=== PATIENT | male | born 1970 | race Caucasian/White ===

== ENCOUNTER 2019-03-11 09:11 | Emergency (ER) | payer BC ==
--- NOTE | 2019-03-11 09:36 | EDM.PDOC ---
ED HPI GENERAL MEDICAL PROBLEM - General Stated Complaint: FELL OFF LADDER INJURING ANKLE Time Seen by Provider: 03/11/19 09:11 Source of Information: Reports: Patient History Limitations: Reports: No Limitations - History of Present Illness INITIAL COMMENTS - FREE TEXT/NARRATIVE: 48 y.o.w.m came one day after he fell 4 feet from a ladder, to the ED due to pain and swelling of his right ankle and right calcaneus pain, No back pain. No N/V/D no dizziness no SOB no CP or any other acute med issues. BP 134/90 RR 18 Pulse ox 98% on RA Pulse 94 Temp 36.6 Onset Date: 03/10/19 Onset Time: 15:00 Duration: Day(s): Location: Reports: Lower Extremity, Right (foot) Quality: Reports: Dull, Pressure Severity: Moderate Improves with: Reports: Rest Worsens with: Reports: Movement Context: Reports: Trauma Associated Symptoms: Reports: No Other Symptoms Right Ankle Pain Score (Numeric/FACES): 8 - Related Data Allergies Allergy/AdvReac Type Severity Reaction Status Date / Time No Known Allergies Allergy Verified 03/11/19 10:13 Home Meds: Home Meds NK [No Known Home Meds] 03/11/19 [History] Review of Systems - Review of Systems Review Of Systems: See Below Constitutional: Reports: No Symptoms Eyes: Reports: No Symptoms Ears: Reports: No Symptoms Nose: Reports: No Symptoms Mouth/Throat: Reports: No Symptoms Respiratory: Reports: No Symptoms Cardiovascular: Reports: No Symptoms GI/Abdominal: Reports: No Symptoms Genitourinary: Reports: No Symptoms Musculoskeletal: Reports: Foot Pain (right foot) Skin: Reports: No Symptoms Neurological: Reports: No Symptoms Psychiatric: Reports: No Symptoms ED EXAM, GENERAL - Physical Exam Exam: See Below Exam Limited By: No Limitations General Appearance: Alert, WD/WN, Mild Distress Eye Exam: Bilateral Eye: Normal Inspection Ears: Normal External Exam Ear Exam: Bilateral Ear: Auricle Normal Nose: Normal Inspection, Normal Mucosa Throat/Mouth: Normal Inspection, Normal Lips, Normal Voice, No Airway Compromise Head: Atraumatic, Normocephalic Neck: Normal Inspection, Supple, Non-Tender Respiratory/Chest: No Respiratory Distress, Lungs Clear, Normal Breath Sounds, No Accessory Muscle Use, Chest Non-Tender Cardiovascular: Normal Peripheral Pulses, Regular Rate, Rhythm, No Edema, No Gallop, No Murmur, No Rub Peripheral Pulses: 2+: Brachial (L) GI/Abdominal: Normal Bowel Sounds, Soft, Non-Tender (Male) Exam: Deferred Rectal (Males) Exam: Deferred Back Exam: Normal Inspection Extremities: Normal Inspection, Normal Range of Motion, Normal Capillary Refill , Other (tender and swollen right ankle, Calcaneous pain) Neurological: Alert, Oriented, CN II-XII Intact, Normal Cognition, Abnormal Gait (foot pain) Psychiatric: Normal Affect, Normal Mood Skin Exam: Warm, Dry, Intact, Normal Color, No Rash Lymphatic: No Adenopathy ED TRAUMA EXTREMITY PROCEDURES - Splinting Right Lower Extremity Splint Site: fight lower leg Pre-Procedure NV Status: Normal Post-Procedure NV Status: Normal Splint Material: Fiberglass Splint Design: Extensor Applied & Form Fitted By: Provider Provider Post-Splint Application NV Check: NV Status Normal Complications: No Course - Vital Signs Text/Narrative:: 48 y.o.w.m came one day after he fell 4 feet from a ladder, to the ED due to pain and swelling of his right ankle and right calcaneus pain, No back pain. No N/V/D no dizziness no SOB no CP or any other acute med issues. BP 134/90 RR 18 Pulse ox 98% on RA Pulse 94 Temp 36.6 PE: WNWD W M with r foot pain after a fall off the ladder 4 feet Imaging: Nondisplaced right calcaneus Fracture, Right ankle NL as per RAD Impression: Nondisplaced right calcaneus Fracture Tx: Pt refused pain meds, Short post spint R leg, crutches. 11.[address] Irvin, Ortho: Send pt to [facility] 11.13 am Consultation: Dr. Rose, Podiatry, [place]: F/U next week in clinic Reexam: Pt was doing fine in [facility] ED Plan: D/C with instructions Last Recorded V/S: Last Vital Signs Temp 37.0 C 03/11/19 13:47 Pulse 92 03/11/19 13:47 Resp 18 03/11/19 13:47 BP 153/84 H 03/11/19 13:47 Pulse Ox 99 03/11/19 13:47 - Orders/Labs/Meds Orders: Active Orders 24 hr Category Date Time Status Ankle Min 3V Rt [CR] Stat Exams 03/11/19 09:34 Taken Calcaneous Rt [CR] Stat Exams 03/11/19 10:00 Taken Departure - Departure Time of Disposition: 12:03 Disposition: Home, Self-Care 01 Condition: Good Clinical Impression: Fracture of foot Qualifiers: Encounter type: initial encounter Fracture type: closed Laterality: right Qualified Code(s): S92.901A - Unspecified fracture of right foot, initial encounter for closed fracture - Discharge Information Instructions: Cast or Splint Care, Adult, [id number], Calcaneal Fracture Repair Surgery Referrals: Jad Clancy MD [Primary Care Provider] - Forms: ED Department Discharge Additional Instructions: Please take Motrin for pain, Rest, ICE and elevation, please use crutches. No weight bearing right leg. Please f/u with Dr. Rose, [facility]: . Please come back if your symptoms get worse acutely - My Orders Last 24 Hours: My Active Orders 03/11/19 09:34 Ankle Min 3V Rt [CR] Stat 03/11/19 10:00 Calcaneous Rt [CR] Stat - Assessment/Plan Last 24 Hours: My Active Orders 03/11/19 09:34 Ankle Min 3V Rt [CR] Stat 03/11/19 10:00 Calcaneous Rt [CR] Stat
== END 2019-03-11 12:20 | disposition home or self-care (01) ==
LOC: FB.ED 09:11
DX: S92.044A Nondisplaced other fracture of tuberosity of right calcaneus, initial encounter for closed fracture (principal); W11.XXXA Fall on and from ladder, initial encounter
CPT/HCPCS: 29515; 73610-RT; 73650-RT; 99283-25

== ENCOUNTER 2020-01-01 22:51 | Emergency (ER) | payer BC ==
[2020-01-01] MEDS ORDERED: Diphtheria,Pertussis(Acell),Tetanus Vaccine 0.5 ML SDV IM ONE (23:33)
--- NOTE | 2020-01-01 23:34 | EDM.PDOC ---
ED HPI GENERAL MEDICAL PROBLEM - General Chief Complaint: Laceration Stated Complaint: fall Time Seen by Provider: 01/01/20 23:35 Source of Information: Reports: Patient History Limitations: Reports: No Limitations - History of Present Illness INITIAL COMMENTS - FREE TEXT/NARRATIVE: Patient presented to the ED because of a fall. He was drunk when he came home tonight and fell while walking in his garage. He sustained abrasions on the nasal bridge, and right nasal base. There was no LOC after the fall. Nose Pain Score (Numeric/FACES): 1 - Related Data Allergies Allergy/AdvReac Type Severity Reaction Status Date / Time No Known Allergies Allergy Verified 03/11/19 10:13 Home Meds: Home Meds NK [No Known Home Meds] 03/11/19 [History] Social & Family History - Family History Family Medical History: Noncontributory - Tobacco Use Years of Tobacco use: 34 Packs/Tins Daily: 0.5 Used Tobacco, but Quit: No Second Hand Smoke Exposure: No - Caffeine Use Caffeine Use: Reports: Coffee - Alcohol Use Days Per Week of Alcohol Use: 2 Number of Drinks Per Day: 5 Total Drinks Per Week: 10 - Recreational Drug Use Recreational Drug Use: No ED ROS GENERAL - Review of Systems Review Of Systems: See Below Constitutional: Reports: No Symptoms HEENT: Reports: No Symptoms Respiratory: Reports: No Symptoms Cardiovascular: Reports: No Symptoms Endocrine: Reports: No Symptoms GI/Abdominal: Reports: No Symptoms : Reports: No Symptoms Skin: Reports: Other (abrasions) Neurological: Reports: No Symptoms Psychiatric: Reports: No Symptoms ED EXAM, SKIN/RASH Exam: See Below Exam Limited By: No Limitations General Appearance: Alert, No Apparent Distress Eye Exam: Bilateral Eye: PERRL Ears: Normal External Exam Nose: Normal Inspection Throat/Mouth: Normal Inspection Head: Atraumatic, Normocephalic Neck: Normal Inspection Respiratory/Chest: No Respiratory Distress, Lungs Clear, Normal Breath Sounds Cardiovascular: Normal Peripheral Pulses, Regular Rate, Rhythm GI/Abdominal: Normal Bowel Sounds, Soft, Non-Tender, No Organomegaly Back Exam: Normal Inspection, Full Range of Motion Extremities: Normal Inspection, Normal Range of Motion Neurological: Alert, Oriented, CN II-XII Intact Skin: Warm, Dry, Other (abrasions-nasal brase and base of the right nosetril) Course - Vital Signs Last Recorded V/S: Last Vital Signs Temp 36.5 C 01/01/20 23:55 Pulse 89 01/01/20 23:55 Resp 14 01/01/20 23:55 BP 128/92 H 01/01/20 23:55 Pulse Ox 97 01/01/20 23:55 - Orders/Labs/Meds Orders: Active Orders 24 hr Category Date Time Status Vaccines to be Administered [RC] PER UNIT ROUTINE Care 01/01/20 23:33 Active Meds: Medications Discontinued Medications Generic Name Dose Route Start Last Admin Trade Name Kaylah PRN Reason Stop Dose Admin Diphtheria/Tetanus/Acell Pertussis 0.5 ml 01/01/20 23:33 01/01/20 23:50 Adacel IM 01/01/20 23:34 0.5 ml .ONCE ONE Administration Departure - Departure Time of Disposition: 23:45 Disposition: Home, Self-Care 01 Condition: Good Clinical Impression: Abrasion, Laceration - Discharge Information Instructions: Diphtheria/Tetanus Toxoids; Pertussis Vaccine, DTP injection, Laceration Care, Adult, [id number], Abrasion, [id number] Referrals: Jad Clancy MD [Primary Care Provider] - Forms: ED Department Discharge Additional Instructions: Please read discharge instructions on abrasion and laceration keep the wound dry and clean look for signs of infection-see print out follow up as needed Sepsis Event Note - Evaluation Sepsis Screening Result: No Definite Risk - Focused Exam Vital Signs: Vital Signs Temp Pulse Resp BP Pulse Ox 01/01/20 23:55 36.5 C 89 14 128/92 H 97 01/01/20 23:29 85 14 125/92 H 97 Date Exam was Performed: 01/02/20 Time Exam was Performed: 10:18 - My Orders Last 24 Hours: My Active Orders 01/01/20 23:33 Vaccines to be Administered [RC] PER UNIT ROUTINE - Assessment/Plan Last 24 Hours: My Active Orders 01/01/20 23:33 Vaccines to be Administered [RC] PER UNIT ROUTINE
[2020-01-02] MEDS ORDERED: Lidocaine 2% Viscous Solution 15 ML Cup PO ONE (00:48)
== END 2020-01-02 00:01 | disposition home or self-care (01) ==
LOC: FB.ED 22:51
DX: S01.21XA Laceration without foreign body of nose, initial encounter (principal); F17.210 Nicotine dependence, cigarettes, uncomplicated; Z23 Encounter for immunization; W18.30XA Fall on same level, unspecified, initial encounter; Y92.59 Other trade areas as the place of occurrence of the external cause
CPT/HCPCS: 90471; 90715; 99283

== ENCOUNTER 2022-02-21 14:18 | Emergency (ER) | payer BC | END 2022-02-21 15:40 | disposition home or self-care (01) | LOC: FB.ED 14:18 | DX: S06.0X0A Concussion without loss of consciousness, initial encounter (principal); S00.01XA Abrasion of scalp, initial encounter; Z91.012 Allergy to eggs; W18.09XA Striking against other object with subsequent fall, initial encounter | CPT/HCPCS: 70450; 99281; 99284 ==